=== PATIENT | female | born 1940 | race Caucasian/White ===

== ENCOUNTER → 2019-10-14 10:05 | Outpatient (CLI) | payer MEDICARE, OTHER, SELFPAY ==
--- NOTE | ~2019-10-14 | MR_ITS ---
EXAMINATION: MR brain/brain stem wo con EXAM DATE: 10/14/2019 11:00 INDICATION: Cognitive issues. Occasional dizziness. TECHNIQUE: Magnetic resonance imaging (MRI) of the brain/brain stem obtained without contrast. Sagitt al T1, axial diffusion, gradient echo (T2*), T1, T2, FLAIR sequences obtained. There is no prior st udy for comparison. FINDINGS: There are no areas of restricted diffusion to suggest acute infarction. There is no acute hemorrhage seen on the T2*, a hemosiderin sensitive sequence. No intraparenchymal brain mass lesion. There is mild periventricular and subcortical T2/FLAIR signal hyperintensity, nonspecific but probab ly related to small vessel ischemic disease (microangiopathy). There is mild prominence of the sulc i and ventricles related to cerebral atrophy. There are no extra-axial collections. Flow voids are seen in the cerebral arteries on the T2-weighted sequences consistent with their expected patency. The orbits are unremarkable. Soft tissue is unremarkable. IMPRESSION: 1. No acute intracranial findings. 2. Chronic age related findings. Reviewed, dictated and finalized at location A.
--- NOTE | ~2019-10-14 | DEXA_ITS ---
Bone Density Report Name: Alice Preston Age: 79 Sex: Female Ethnicity: White Date of : 1940 Indication: postmenopausal; screening for osteoporosis; height loss; hysterectomy; Referring Provider: Erik Feng Study: Bone densitometry was performed. Exam Date: October 14, 2019 Accession number: [id number] Bone Density: Region BMD T-score Z-score Classification AP Spine (L1, L2, L3) 1.201 1.7 4.3 Normal Femoral Neck (Left) 0.851 0.0 2.4 Normal Total Hip (Left) 1.006 0.5 2.7 Normal Femoral Neck (Right) 0.880 0.3 2.6 Normal Total Hip (Right) 0.976 0.3 2.4 Normal Total Hip Mean 0.991 0.4 2.6 Normal World Health Organization criteria for BMD impression classify patients as: Normal (T-score at or above -1.0), Osteopenia (T-score between -1.0 and -2.5), or Osteoporosis (T-score at or below -2.5). 10-year Fracture Risk: FRAX not reported because: All T-scores for Spine Total, Hip Total, Femoral Neck at or above -1.0 Clinical Information Provided by Patient: Has the following medical conditions: Hysterectomy Patient maximum height was 65 Menopause Age: 40 No regular weight bearing exercise Drinks caffeinated beverages Onset of menses at age 10 Number of children 2 Impression: The patient has normal bone mass. Discussion: LOW RISK OF FRACTURE; BONE DENSITY IS WELL ABOVE THE MINIMUM DESIRABLE LEVEL AND ABOVE AVERAGE FOR AGE AND SEX AT ALL SKELETAL SITES TESTED. This person's bone density is above expected limits for age and sex. This is rarely clinically significant, but should be pursued if there are significant musculoskeletal complaints. The patient should follow a healthful lifestyle (good nutrition with adequate calcium and vitamin D, and appropriate weight-bearing exercise). Follow-Up: Consider repeating this study in 5 years or sooner if there is some new clinical indication. Reported by: MATTHEW on 10/14/2019 10:36:00 AM. Reviewed, dictated and finalized at location ANickie HOUGH
== END ==
PROVIDERS: PCP Family Medicine; Visit Provider Physician Assistant Medical
DX: F03.90 Unspecified dementia, unspecified severity, without behavioral disturbance, psychotic disturbance, mood disturbance, and anxiety (principal); Z78.0 Asymptomatic menopausal state
CPT/HCPCS: 70551; 77080

== ENCOUNTER 2019-11-26 15:35 | Observation (INO) | payer MEDICARE, OTHER, SELFPAY ==
[2019-11-26] VITALS (7 sets, daily range): BP systolic 137–165; BP diastolic 52–80; PULSE 71–80; RESP 14–18; TEMP 36.2–36.8; O2SAT 99–100; BMI 31.4
--- NOTE | ~2019-11-26 | CT_ITS ---
EXAMINATION: CT brain wo con DATE: 11/26/2019 16:00 INDICATION: Aphasia TECHNIQUE: Computed tomography (CT) of the head was performed without intravenous contrast. The mA wa s adjusted according to patient size. Iterative reconstruction technique was employed. Exam dose: 60 5.33 mGy-cm total exam DLP. COMPARISON: None FINDINGS: No intracranial mass lesion or hemorrhage or evidence of cerebrovascular accident. No midli ne shift or mass effects. No subdural or epidural hematoma. No orbital mass lesion is evident. No fracture or bone destruction of the cranial vault. The mastoid air cells and included paranasal sinuses are normally developed and aerated bilaterally. IMPRESSION: No acute intracranial finding Reviewed, dictated and finalized at Location A. Reviewed, dictated and finalized at location A.
--- NOTE | ~2019-11-26 | US_ITS ---
EXAMINATION: US carotid duplex BI DATE: 11/27/2019 10:36 INDICATION: Aphasia. TIA. TECHNIQUE: Grayscale, color Doppler, and pulsed Doppler images of the cervical carotid arteries were obtained. The degree of vessel stenosis is placed in one of the following categories: normal, <50%, 5 0-69%, >=70% but less than near-occlusion, near-occlusion, or total occlusion. Note that percent sten osis relative to normal distal artery lumen diameter is indirectly measured from velocity measurement s as described by Sanju, et al. Radiology 2003; 229:340-346. Notes: Normal: Peak systolic velocity <125 centimeters/sec and no plaque <50%. Peak systolic velocity <125 ( EDV <40; ICA/CCA PSV ratio <2.0; used these factors only a tandem lesions or low cardiac output or co ntralateral disease) 50-69 %: PSV 125-230 (EDV 40-100; ratio 2-4) >= 70% but less than near occlusion: PSV greater than 230 (EDV > 100; ratio> 4.0) Near Occlusion: PSV that is variable; markedly narrowed lumen Occlusion: Absent flow on color/spectral Doppler and no lumen on don scale. COMPARISON: None. FINDINGS: RIGHT: The right common carotid artery (CCA) peak systolic velocity (PSV) is 103 cm/s. The right internal ca rotid artery (ICA) PSV is 82 cm/s. The right ICA end-diastolic velocity (EDV) is 21 cm/s. The right I CA/CCA PSV ratio is 0.8. The external carotid artery (ECA) PSV is 105 cm/s. There is antegrade flow i n the right vertebral artery. LEFT: The left CCA PSV is 95 cm/s. The left ICA PSV is 100 cm/s. The left ICA EDV is 18 cm/s. The left ICA/ CCA PSV ratio is 1.1. The ECA PSV is 98 cm/s. There is antegrade flow in the left vertebral artery. IMPRESSION: 1. Less than 50% stenosis in the right internal carotid artery by sonographic criteria. 2. Less than 50% stenosis in the left internal carotid artery by sonographic criteria. Reviewed, dictated and finalized at location A. IMPRESSION: 1. Less than 50% stenosis in the right internal carotid artery by sonographic kelly ruth. 2. Less than 50% stenosis in the left internal carotid artery by sonographic karl yeung.
--- NOTE | ~2019-11-26 | XR_ITS ---
XR chest 1V portable DATE: 11/26/2019 16:07 INDICATION: Cerebrovascular accident. Aphasia. TECHNIQUE: Portable AP chest on 11/26/2019 at 1601 hours COMPARISON: None FINDINGS: Normal heart size. Aortic arch calcification. No hilar or mediastinal enlargement. No pulmo nary infiltrate or consolidation, pleural effusion or pulmonary vascular congestion or pneumothorax. Bilateral glenohumeral osteoarthritis. Diffuse idiopathic skeletal hyperostosis of the thoracic spine . IMPRESSION: No active cardiopulmonary disease Reviewed, dictated and finalized at location A.
--- NOTE | ~2019-11-26 | MR_ITS ---
EXAMINATION: MR brain/brain stem wo/w con DATE: 11/27/2019 09:00 INDICATION: Aphasia TECHNIQUE: Magnetic resonance imaging (MRI) of the brain and brainstem was performed without intraven ous contrast. Sequences included sagittal and axial T1-weighted SE, axial diffusion-weighted FS SE, a xial T2*-weighted GRE, axial T2-weighted FLAIR Propeller, and axial T2-weighted Propeller. Apparent d iffusion coefficient (ADC) maps were created. COMPARISON: MRI dated 10/14/2019. FINDINGS: Normal brain parenchymal volume for age. No acute intracranial hemorrhage, infarction, mass or mass effect. There are scattered mild periventricular and subcortical white matter changes, most likely related to small vessel ischemic disease (microangiopathy). No ventriculomegaly or midline kortney ft. Structures of the posterior fossa including 7/8th cranial nerve complexes are unremarkable. Paran heather sinuses are unremarkable. Orbits are symmetric without disconjugate gaze. Major intracerebral fl ow voids are normal. Midline sagittal images are normal. No abnormal contrast enhancement. IMPRESSION: 1. No acute intracranial abnormality. 2: Chronic age-related findings. Reviewed, dictated and finalized at location A.
--- NOTE | 2019-11-26 15:45 | ECG_ITS ---
Measurements Intervals [place] Rate: 75 P: 49 VA: 148 QRS: -22 QRSD: 139 T: 121 QT: 412 QTc: 460 Interpretive Statements SINUS RHYTHM LEFT BUNDLE BRANCH BLOCK BASELINE ARTIFACT- II, III, AVF, V5 ABNORMAL ECG Electronically Signed On 11-26-2019 15:58:01 CDT by oSnu Wooten D.O.
[2019-11-26 16:11] LABS: Basophils Percent Auto 0.2 % (0.2-1.2); Eosinophils Absolute Auto 0.2 K/mm3 (0-0.3); Eosinophils Percent Auto 2.1 % (0-4.4); Hematocrit 44.2 % (37.0-47.0); Hemoglobin 14.7 g/dL (12.0-15.0); Immature Granulocyte Absolute 0.04 K/mm3 (0.00-0.031); Immature Granulocyte Percent A 0.3 % (0-0.5); Lymphocytes Absolute Auto 3.48 K/mm3 (0.9-3.2); Lymphocytes Percent Auto 29.7 % (18.3-44.2); Mean Corpuscular HGB Conc 33.3 g/dl (32-36); Mean Corpuscular Hemoglobin 31.7 pg (26-34); Mean Corpuscular Volume 95.5 fl (80-100); Mean Platelet Volume 10.3 fl (7.4-10.4); Monocytes Absolute Auto 1.1 K/mm3 (0.1-0.6); Monocytes Percent Auto 9.2 % (2.6-8.5); Neutrophils Absolute Auto 6.8 K/mm3 (1.3-6.7); Neutrophils Percent Auto 58.5 % (45.5-73.1); Platelet Count Result 285 k/mm3 (150-375); Red Blood Count 4.63 M/mm3 (4.2-5.4); Red Cell Distribution Width 12.9 % (11.5-14.5); White Blood Count 11.7 K/mm3 (4.5-10.0)
--- NOTE | 2019-11-26 16:16 | ED.NEUROSD ---
HPI - Neuro Symptoms/Deficit General Chief Complaint: Neuro Symptoms/Deficit Stated Complaint: aphasia Time Seen by Provider: 11/26/19 15:43 Source: RN notes reviewed History of Present Illness HPI Narrative: Patient presents emergency department from home for a seizure. Patient states approximate 145 today she had a 15-minute episode of a seizure. States she was talking with a neighbor during that time. She denies any other associated symptoms denies any facial droop numbness or tingling in the extremities difficulty moving the extremities chest pain shortness of breath or any other symptoms. She denies any previous history of CVA. States all symptoms have resolved at this time Related Data Home Medications Medication Instructions Recorded Confirmed aspirin 81 mg tablet,delayed 81 mg PO DAILY 09/29/19 release atorvastatin 10 mg tablet 10 mg PO DAILY 09/29/19 bimatoprost 0.01 % eye drops 1 drop EACH EYE QPM 09/29/19 gabapentin 400 mg capsule 400 mg PO BID 09/29/19 hydrochlorothiazide 12.5 mg tablet 12.5 mg PO DAILY 09/29/19 insulin degludec 200 unit/mL (3 20 unit SUB-Q DAILY 09/29/19 mL) subcutaneous pen lisinopril 20 mg tablet 20 mg PO DAILY 09/29/19 metformin 500 mg tablet,extended 1,000 mg PO DAILY tablet 09/29/19 release 24 hr metoprolol tartrate 50 mg tablet 50 mg PO Q12H 09/29/19 multivit with min-folic 1 tablet PO DAILY 09/29/19 acid-lutein 400 mcg-250 mcg chewable tablet Allergies Allergy/AdvReac Type Severity Reaction Status Date / Time No Known Allergies Allergy Verified 09/29/19 11:14 Review of Systems Review of Systems: Narrative: Gen.: Denies fevers or chills Eyes: Denies eye pain or visual change ENT: Denies congestion Respiratory: Denies shortness of breath or cough CV: Denies chest pain or palpitations GI: Denies abdominal pain nausea, emesis or diarrhea Musculoskeletal: Denies back pain or muscle pain Neuro: See HPI Skin: Denies rash Except as documented, all other systems reviewed and negative PMF Past Medical History Medical History Ovarian cancer Wears glasses Surgical History Surgical History (Updated 09/29/19 @ 10:38 by Emily العراقي CMA) History of appendectomy History of arthroscopic knee surgery History of hysterectomy History of tonsillectomy Previous back surgery Social History Social History Smoking status: Never smoker Alcohol intake: never Exam Narrative: Exam Narrative: APPEARANCE: No acute distress, nontoxic, resting in bed HEENT: Normocephalic, atraumatic, OMM, TMs clear bilaterally EYES: PERRL, EOMI NECK: Supple, nontender, full range of motion without pain, no meningismus RESPIRATORY: No respiratory distress, clear to auscultation bilaterally with no rhonchi wheezing or rales CARDIOVASCULAR: RRR s murmur ABDOMINAL: Soft, nontender, nondistended MUSCULOSKELETAL: Moves all extremities. No clubbing, cyanosis or edema. NEURO: A and O ?3, following commands, speech normal, cranial nerves II through XII grossly intact,muscle strength 5 out of 5 bilateral upper and lower extremities SKIN:: Warm, dry. Normal Color PSYCHIATRIC: Normal affect/mood Course Course Emergency Course: Discussed with BRITTANI Torres for Dr Butts presentation work-up. Agrees with admission at this time Discussed with patient and family results of workup and diagnosis. Discussed need for admission. Patient and family understand and agree to current treatment plan Vital Signs Vital signs: Vital Signs Temperature 98.2 F 11/26/19 15:48 Pulse Rate 80 11/26/19 15:48 Respiratory Rate 18 11/26/19 15:48 Blood Pressure 156/80 H 11/26/19 15:48 Pulse Oximetry 100 11/26/19 15:48 Temperature 98.2 F 11/26/19 15:48 Pulse Rate 72 11/26/19 16:30 Respiratory Rate 14 11/26/19 16:30 Blood Pressure 137/52 L 11/26/19 16:30 Pulse Oximetry 99
[2019-11-26 16:20] LABS: Prothrombin Time 12.7 Seconds (11.1-14.7)
[2019-11-26 16:21] LABS: Partial Thromboplastin Time 28.3 SECONDS (22.3-36.8)
[2019-11-26 16:22] LABS: Blood Urea Nitrogen 21 mg/dL (7-17); Calcium 9.3 mg/dL (8.4-10.2); Carbon Dioxide 27 mmol/L (22-30); Chloride 106 mmol/L (98-107); Estimated Glomerular Filt Rate 60; Glucose 203 mg/dL (65-105); Sodium 139 mmol/L (137-145)
[2019-11-26 16:34] LABS: Troponin I < 0.012 ng/mL (0.000-0.034)
[2019-11-26] MEDS: ASPIRIN 81 MG CHEWABLE TABLET 324 MG PO (17:47)
--- NOTE | 2019-11-26 18:18 | ADMGEN ---
This patient, Alice Cordobaetler, was admitted to Medical Room 346-. Patient/family oriented to hospital policies and general routines including ID bracelet, bed and alarms, visiting hours, pain management, procedures, bathroom and other care routines, personal items, smoking policy, room service/diet, and visiting hours. Valuables list has been completed. Information on how to activate the Rapid Response Team has been discussed. Patient/Family are encouraged to report perceived risks to care and to ask questions if they do not understand what they are told or what they should do.
[2019-11-26 19:10] LABS: Glucose Point of Care 137 (65-105)
[2019-11-26 19:24] LABS: Troponin I < 0.012 ng/mL (0.000-0.034)
[2019-11-26] MEDS: METOPROLOL TARTRATE 50 MG TAB PO (21:10)
--- NOTE | 2019-11-26 21:30 | PM.IMHP ---
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 She was in usual state of health when she woke this morning. Not long prior to arrival, she was outside speaking with her neighbor when suddenly ?I could not come up with or get out the words that I was trying to say.? This lasted for approximately 15 minutes before resolving without recurrence. She also mentions that earlier this morning she had a ?bright white star? appear in her right visual field, causing some blurriness, before resolving. It is my understanding that this is happened previously, and when she discussed it with her eye doctor she was told that this was essentially an ocular headache and nothing to worry about. In any event, she had no other neurologic symptoms than the dysarthria. She specifically denies headache, vertigo, focal weakness, paresthesias, diplopia, and dysphagia. She has no history of cardiac dysrhythmia and denies palpitations, fluttering, and racing heart. There was no seizure activity. She did not check her glucose prior to coming to the hospital, but her lunchtime reading was around 130. Of note, she mentions having a brain MRI due to occasional dizziness and ?cognitive issues.? With further clarification, the patient tells me that during a routine appointment with her physician that her cognitive score was a bit lower than what is normal for her age. She herself had not noticed any change in memory or cognition. Review of Systems Review of Systems: Narrative: Twelve systems were reviewed with pertinent positives and negatives as per HPI. No fever, chills, or sweats. No recent cold or flu-like symptoms. She denies headache. No falls. No chest pain or shortness of breath. No cough. No nausea, vomiting, or diarrhea. No dysuria. Occasional stress urinary incontinence with coughing or laughing. She believes her diabetes is fairly well controlled with a recent hemoglobin A1c of 7%. No blurry vision, polydipsia, or polyuria. No nephropathy, retinopathy, or significant neuropathy. Except as documented, all other systems were reviewed and are negative. [facility] Past Medical History Medical History (Updated 11/26/19 @ 20:13 by Melissa Guillen PA-C) Diabetic peripheral neuropathy DVT (deep venous thrombosis) Essential hypertension Glaucoma Insulin dependent type 2 diabetes mellitus Hemoglobin A1c was 7.0% in August 2019. Kidney stone Mixed hyperlipidemia Ovarian cancer (~1983) Status post bilateral salpingo-oophorectomy and radiation/chemotherapy. Pancreatitis Surgical History Surgical History (Updated 11/26/19 @ 23:34 by Melissa Guillen PA-C) History of appendectomy History of arthroscopy of left knee History of bilateral salpingo-oophorectomy (~1983) For ovarian cancer. History of lumbar laminectomy History of tonsillectomy Family History Family History Mother Diabetes mellitus Sibling Diabetes mellitus Father Family history of kidney disease Grandparent Family history of pancreatic cancer Family history of malignant neoplasm of uterus Other Family history of arthritis Family history of blood dyscrasia Family history of congestive heart failure Family history of hearing loss Family history of mental disorder Family history of thyroid disease Social History Social History (Updated 11/26/19 @ 23:35 by Melissa Guillen PA-C) Social History: The patient lives in her own home in [place]. She is originally from [place], [place]. Her was in the [employer], and the previously lived in [facility], [place], and [place]. Her in June 2019 of stage IV lung cancer. They hav
[2019-11-26 22:31] LABS: Troponin I < 0.012 ng/mL (0.000-0.034)
[2019-11-26 22:46] LABS: Glucose Point of Care 86 (65-105)
[2019-11-27] VITALS: PULSE 64
[2019-11-27 04:00] VITALS: PULSE 64
[2019-11-27 05:48] VITALS: BP 148/61; PULSE 71; RESP 16; TEMP 36.6; O2SAT 100
[2019-11-27 06:48] LABS: Alanine Aminotransferase 22 U/L (4-35); Albumin Level 3.7 g/dL (3.5-5.1); Alkaline Phosphatase 73 U/L (38-126); Aspartate Amino Transferase 26 U/L (14-36); Bilirubin,Total 0.5 mg/dL (0.2-1.3); Blood Urea Nitrogen 16 mg/dL (7-17); Calcium 8.8 mg/dL (8.4-10.2); Carbon Dioxide 26 mmol/L (22-30); Chloride 108 mmol/L (98-107); Cholesterol 120 mg/dL (0-200); Estimated CRCL calculation 57 ml/min; Estimated Glomerular Filt Rate > 60; Glucose 135 mg/dL (65-105); HDL Direct 49 mg/dL; Sodium 139 mmol/L (137-145); Triglycerides 71 mg/dL (<150)
[2019-11-27 06:59] LABS: LDL Cholesterol Direct 52 mg/dL
[2019-11-27 07:49] LABS: Glucose Point of Care 151 (65-105)
[2019-11-27 08:00] VITALS: PULSE 72
[2019-11-27] MEDS: MULTIVITAMINS /C LUTEIN (CENTRUM SILVER) TABLET *BKC 1 TAB PO (09:40)
[2019-11-27 09:41] VITALS: PULSE 78
[2019-11-27] MEDS: METOPROLOL TARTRATE 50 MG TAB PO (09:41)
[2019-11-27] MEDS: ATORVASTATIN 10 MG TABLET PO (09:42)
[2019-11-27] MEDS: hydroCHLOROthiazide 12.5 MG CAPSULE PO (09:42)
[2019-11-27] MEDS: lisinopriL 20 MG TABLET PO (09:42)
[2019-11-27 11:53] LABS: Glucose Point of Care 271 (65-105)
[2019-11-27 12:00] VITALS: PULSE 76
[2019-11-27] MEDS: ASPIRIN 81 MG ENTERIC TABLET PO (12:00)
[2019-11-27] MEDS: GABAPENTIN 400 MG CAPSULE PO (12:01)
[2019-11-27] MEDS: INSULIN ASPART (*BKC) 100 UNITS/ML 8 UNITS SUB-Q (12:01)
--- NOTE | 2019-11-27 12:43 | PC.NURSE ---
Pt's 0900 Gabapentin and asprin delayed due to pharmacy.
--- NOTE | 2019-11-27 13:42 | PM.DS ---
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 She was in usual state of health when she woke this morning. Not long prior to arrival, she was outside speaking with her neighbor when suddenly ?I could not come up with or get out the words that I was trying to say.? This lasted for approximately 15 minutes before resolving without recurrence. She also mentions that earlier this morning she had a ?bright white star? appear in her right visual field, causing some blurriness, before resolving. It is my understanding that this is happened previously, and when she discussed it with her eye doctor she was told that this was essentially an ocular headache and nothing to worry about. In any event, she had no other neurologic symptoms than the dysarthria. She specifically denies headache, vertigo, focal weakness, paresthesias, diplopia, and dysphagia. She has no history of cardiac dysrhythmia and denies palpitations, fluttering, and racing heart. There was no seizure activity. She did not check her glucose prior to coming to the hospital, but her lunchtime reading was around 130. Of note, she mentions having a brain MRI due to occasional dizziness and ?cognitive issues.? With further clarification, the patient tells me that during a routine appointment with her physician that her cognitive score was a bit lower than what is normal for her age. She herself had not noticed any change in memory or cognition. Hospital Course: Discuss with patient she does not wish to stay in the hospital until for cardiac ECHO as all other test are normal including MRI of the brain, patient will follow up with her primary care provider as soon as possible, patient is instructed if any symptoms redevelop to call 911. patient is clinically stable will discharge patient home today. Status at Discharge Functional status at discharge: independent ambulation Overall status at discharge: patient is back to baseline Time Spent with Patient Time attestation: Total time spent providing and/or coordinating discharge services: Time spent: Less than 30 minutes Exam Const: General: comfortable and no acute distress HENMT: General nose exam: Normal nares present Eyes: General: appearance normal, both eyes and all related structures Sclera: sclerae normal Neck: Neck: supple Resp: Effort & Inspection: normal respiratory effort Auscultation: clear to auscultation bilaterally Cardio: Rate: regular rate Rhythm: regular rhythm GI: GI Palp: Yes Soft to palpation Auscultation: normal bowel sounds Skin: General skin exam: normal color Neuro: Sensory Exam: normal sensation Extrem: General: normal to inspection Psych: Affect: Anxious affect present DS: Data Data Completed and Pending Labs on day of discharge: Labs from last 24 hours 11/27/19 11/27/19 11/27/19 11:51 07:46 06:08 WBC RBC Hgb Hct MCV MCH MCHC RDW Plt Count MPV Immature Gran % (Auto) Neut % (Auto) Lymph % (Auto) [place] % (Auto) Eos % (Auto) Baso % (Auto) Lymph # (Auto) [place] # (Auto) Eos # (Auto) Baso # (Auto) Abs Immat Gran (auto) Absolute Neuts (auto) Absolute Nucleated RBC Nucleated RBC % PT INR APTT Sodium 139 Potassium 4.0 Chloride 108 H Carbon Dioxide 26 BUN 16 Creatinine 0.70 Estim Creat Clear Calc 57 Estimated GFR > 60 Glucose 135 H POC Capillary Glucose 271 H 151 H Calcium 8.8 Total Bilirubin 0.5 Direct Bilirubin 0.0 AST 26 ALT 22 Alkaline Phosphatase 73 Troponin I Total Protein 7.0 Albumin 3.7 Triglycerides 71 Cholesterol 120 LDL Cholesterol Direct 52 HDL Direct 49 05
--- NOTE | 2020-01-05 10:12 | WPDNEURCNPN ---
Consult date: 01/05/20 Time Seen: 10:13 HPI: Alice Preston is a 79 year old female ,This examiner never examine the patient and during the course of this hospitalization [facility] Past Medical History Medical History (Updated 12/29/19 @ 15:52 by Bertha Oneil MD) Benign paroxysmal vertigo, left ear Diabetic peripheral neuropathy DVT (deep venous thrombosis) Essential hypertension Glaucoma Insulin dependent type 2 diabetes mellitus Hemoglobin A1c was 7.0% in August 2019. Kidney stone Mixed hyperlipidemia Ovarian cancer (~1983) Status post bilateral salpingo-oophorectomy and radiation/chemotherapy. Pancreatitis Surgical History Surgical History (Updated 11/26/19 @ 23:34 by Melissa Guillen PA-C) History of appendectomy History of arthroscopy of left knee History of bilateral salpingo-oophorectomy (~1983) For ovarian cancer. History of lumbar laminectomy History of tonsillectomy Family History Family History Mother Diabetes mellitus Sibling Diabetes mellitus Father Family history of kidney disease Grandparent Family history of pancreatic cancer Family history of malignant neoplasm of uterus Other Family history of arthritis Family history of blood dyscrasia Family history of congestive heart failure Family history of hearing loss Family history of mental disorder Family history of thyroid disease Social History Social History (Updated 11/26/19 @ 23:35 by Melissa Guillen PA-C) Social History: The patient lives in her own home in [place]. She is originally from [place], [place]. Her was in the [employer], and the previously lived in [facility], [facility], and [place]. Her in June 2019 of stage IV lung cancer. They have 2 daughters, who live in the area. She designates her daughters, Cara Orodñez and Nicki Peña, as her surrogate decision makers and she wishes to be a full code. She is a lifelong nonsmoker and denies alcohol and drug abuse. Smoking status: Never smoker Spiritual care concerns: No Agree to blood products: Yes Meds Home Medications and Allergies Home Medications Medication Instructions Recorded Confirmed Type pen needle, diabetic 32 gauge x #300 each 07/13/19 11/26/19 Rx / aspirin 81 mg tablet,delayed 81 mg PO DAILY 09/29/19 11/26/19 History release atorvastatin 10 mg tablet 10 mg PO DAILY 09/29/19 11/26/19 History bimatoprost 0.01 % eye drops 1 drop EACH EYE QPM 09/29/19 11/26/19 History gabapentin 400 mg capsule 400 mg PO BID 09/29/19 11/26/19 History hydrochlorothiazide 12.5 mg tablet 12.5 mg PO DAILY 09/29/19 11/26/19 History lisinopril 20 mg tablet 20 mg PO DAILY 09/29/19 11/26/19 History metformin 500 mg tablet,extended 500 mg PO BID tablet 09/29/19 11/26/19 History release 24 hr metoprolol tartrate 50 mg tablet 50 mg PO Q12H 09/29/19 11/26/19 History multivit with min-folic 1 tablet PO DAILY 09/29/19 11/26/19 History acid-lutein 400 mcg-250 mcg chewable tablet blood sugar diagnostic #320 each 11/23/19 11/26/19 Rx Humalog KwikPen Insulin 8 unit SUB-Q TIDWM 11/26/19 11/26/19 History insulin degludec 200 unit/mL (3 20 unit SUB-Q DAILY 90 Days #9 ml 12/16/19 Rx mL) subcutaneous pen Allergies Allergy/AdvReac Type Severity Reaction Status Date / Time naproxen [From Aleve] AdvReac Hives Verified 11/26/19 18:28 Results Labs CBC & Chem 7: 11/26/19 16:05 11/27/19 06:08 Quality VTE Prophylaxis VTE prophylaxis: mechanical ordered
== END 2019-11-27 14:26 | disposition home or self-care (01) ==
LOC: ANHED 17:25 → ANH3MED 18:54
PROVIDERS: Physician Assistant; Admitting Provider Internal Medicine; Emergency Provider Emergency Medicine; PCP Family Medicine; Visit Provider Family Medicine
DX: R47.1 Dysarthria and anarthria (principal); I10 Essential (primary) hypertension; E11.42 Type 2 diabetes mellitus with diabetic polyneuropathy; E78.2 Mixed hyperlipidemia; H40.9 Unspecified glaucoma; Z79.4 Long term (current) use of insulin; Z79.82 Long term (current) use of aspirin; Z79.899 Other long term (current) drug therapy; Z85.43 Personal history of malignant neoplasm of ovary; Z86.718 Personal history of other venous thrombosis and embolism
CPT/HCPCS: 36415; 70450; 70553; 71045; 80048; 80061; 80076; 84484; 85025; 85610; 85730; 93005; 93880; 99285; A9270; A9577; G0378; J1815

== ENCOUNTER 2020-10-06 14:45 | Outpatient (CLI) | payer MEDICARE, OTHER, SELFPAY ==
--- NOTE | ~2020-10-06 | XR_ITS ---
EXAMINATION: XR knee LT min 4V DATE: 10/06/2020 15:22 INDICATION: Left knee pain. TECHNIQUE: 4 views of left knee were obtained. COMPARISON: None. FINDINGS: There is valgus angulation at the knee. No fracture. There is severe osteoarthritis of late ral compartment and moderate osteoarthritis of medial and patellofemoral compartments. There is a sma ll knee joint effusion. IMPRESSION: 1. Severe left knee osteoarthritis. 2. Small left knee joint effusion. Reviewed, dictated and finalized at location A. [employer] ADMINISTRATOR
--- NOTE | ~2020-10-06 | XR_ITS ---
EXAMINATION: XR knee RT min 4V DATE: 10/06/2020 15:22 INDICATION: Right knee pain. TECHNIQUE: 4 views of right knee were obtained. COMPARISON: None. FINDINGS: There is valgus angulation at the knee. No fracture. There is severe osteoarthritis of medi al compartment, moderate osteoarthritis of patellofemoral compartment, and mild osteoarthritis of lat eral compartment. No knee joint effusion. IMPRESSION: 1. Severe right knee osteoarthritis. Reviewed, dictated and finalized at location A. MANAGER
== END 2020-10-06 14:46 | disposition home or self-care (01) ==
PROVIDERS: PCP Family Medicine; Visit Provider Physician Assistant Medical
DX: M17.0 Bilateral primary osteoarthritis of knee (principal); M25.462 Effusion, left knee
CPT/HCPCS: 73564

== ENCOUNTER 2022-02-27 12:51 | Outpatient (CLI) | payer MEDICARE, OTHER, SELFPAY | END 2022-02-27 12:52 | disposition home or self-care (01) | PROVIDERS: PCP Family Medicine; Visit Provider Family Medicine | DX: E11.65 Type 2 diabetes mellitus with hyperglycemia (principal); Z51.81 Encounter for therapeutic drug level monitoring; Z79.4 Long term (current) use of insulin | CPT/HCPCS: 36415 ==

== ENCOUNTER → 2022-04-30 14:53 | Outpatient (CLI) | payer MEDICARE, OTHER, SELFPAY ==
--- NOTE | ~2022-04-30 | XR_ITS ---
XR shoulder RT min 2V 04/30/2022 15:20 Indication: Right shoulder pain. Procedure: 4 views right shoulder Comparison: No prior studies for comparison. Findings: There is moderate polyarticular osteoarthritis of the right shoulder. No fracture, subluxat ion or dislocation. No soft tissue abnormality. No foreign body. 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 Reviewed, dictated and finalized at location A. 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
== END ==
PROVIDERS: PCP Physician Assistant; Visit Provider Physician Assistant
DX: M25.411 Effusion, right shoulder (principal); M19.011 Primary osteoarthritis, right shoulder
CPT/HCPCS: 73030

== ENCOUNTER 2023-05-23 08:33 | Outpatient (CLI) | payer MEDICARE, OTHER, SELFPAY ==
[2023-05-23 11:52] LABS: Basophils Percent Auto 0.3 % (0.2-1.2); Eosinophils Absolute Auto 0.2 K/mm3 (0-0.3); Eosinophils Percent Auto 1.9 % (0-4.4); Hematocrit 48.7 % (37.0-47.0); Hemoglobin 16.1 g/dL (12.0-15.0); Immature Granulocyte Absolute 0.03 K/mm3 (0.00-0.031); Immature Granulocyte Percent A 0.3 % (0-0.5); Lymphocytes Absolute Auto 2.89 K/mm3 (0.9-3.2); Lymphocytes Percent Auto 31.5 % (18.3-44.2); Mean Corpuscular HGB Conc 33.1 g/dl (32-36); Mean Corpuscular Hemoglobin 32.1 pg (26-34); Mean Platelet Volume 10.4 fl (7.4-10.4); Monocytes Percent Auto 10.6 % (2.6-8.5); Neutrophils Absolute Auto 5.1 K/mm3 (1.3-6.7); Neutrophils Percent Auto 55.4 % (45.5-73.1); Platelet Count Result 279 k/mm3 (150-375); Red Blood Count 5.02 M/mm3 (4.2-5.4); Red Cell Distribution Width 12.8 % (11.5-14.5); White Blood Count 9.2 K/mm3 (4.5-10.0)
[2023-05-23 11:58] LABS: Alanine Aminotransferase 32 U/L (6-35); Albumin Level 4.2 g/dL (3.5-5.1); Alkaline Phosphatase 70 U/L (38-126); Anion Gap 7 mmol/L (8-16); Aspartate Amino Transferase 47 U/L (14-36); Bilirubin,Total 0.7 mg/dL (0.2-1.3); Blood Urea Nitrogen 26 mg/dL (7-17); Calcium 9.6 mg/dL (8.4-10.2); Carbon Dioxide 27 mmol/L (22-30); Chloride 106 mmol/L (98-107); Cholesterol 165 mg/dL (0-200); Estimated Glomerular Filt Rate 53; Glucose 127 mg/dL (65-110); HDL Direct 50 mg/dL; Potassium 4.5 mmol/L (3.4-5.0); Sodium 140 mmol/L (137-145); Triglycerides 94 mg/dL (<150)
[2023-05-23 12:09] LABS: LDL Cholesterol Direct 89 mg/dL
[2023-05-23 12:14] LABS: MALB Creatinine Ratio 23.1 mg/g (0-30); Microalbumin Urine Random 21.7 mg/L (0-16.7)
[2023-05-23 12:57] LABS: Hemoglobin A1C 7.6 % (<5.7)
== END 2023-05-23 08:34 | disposition home or self-care (01) ==
PROVIDERS: PCP Family Medicine; Visit Provider Family Medicine
DX: E11.22 Type 2 diabetes mellitus with diabetic chronic kidney disease (principal); I12.9 Hypertensive chronic kidney disease with stage 1 through stage 4 chronic kidney disease, or unspecified chronic kidney disease; N18.30 Chronic kidney disease, stage 3 unspecified; L65.9 Nonscarring hair loss, unspecified
CPT/HCPCS: 36415; 80053; 80061; 82043; 82607; 82728; 83036; 84443; 85025

== ENCOUNTER 2023-09-26 08:35 | Outpatient (CLI) | payer MEDICARE, OTHER, SELFPAY ==
[2023-09-26 18:57] LABS: Basophils Percent Auto 0.4 % (0.2-1.2); Eosinophils Absolute Auto 0.2 K/mm3 (0-0.3); Eosinophils Percent Auto 2.6 % (0-4.4); Hematocrit 50.5 % (37.0-47.0); Hemoglobin 15.8 g/dL (12.0-15.0); Immature Granulocyte Absolute 0.04 K/mm3 (0.00-0.031); Immature Granulocyte Percent A 0.4 % (0-0.5); Lymphocytes Absolute Auto 3.27 K/mm3 (0.9-3.2); Lymphocytes Percent Auto 35.4 % (18.3-44.2); Mean Corpuscular HGB Conc 31.3 g/dl (32-36); Mean Corpuscular Hemoglobin 30.5 pg (26-34); Mean Corpuscular Volume 97.5 fl (80-100); Mean Platelet Volume 9.8 fl (7.4-10.4); Monocytes Percent Auto 10.6 % (2.6-8.5); Neutrophils Absolute Auto 4.7 K/mm3 (1.3-6.7); Neutrophils Percent Auto 50.6 % (45.5-73.1); Platelet Count Result 262 k/mm3 (150-375); Red Blood Count 5.18 M/mm3 (4.2-5.4); Red Cell Distribution Width 13.2 % (11.5-14.5); White Blood Count 9.2 K/mm3 (4.5-10.0)
[2023-09-26 19:25] LABS: Alanine Aminotransferase 30 U/L (6-35); Alkaline Phosphatase 75 U/L (38-126); Anion Gap 3 mmol/L (8-16); Aspartate Amino Transferase 48 U/L (14-36); Bilirubin,Total 0.6 mg/dL (0.2-1.3); Blood Urea Nitrogen 21 mg/dL (7-17); Calcium 9.2 mg/dL (8.4-10.2); Carbon Dioxide 31 mmol/L (22-30); Chloride 106 mmol/L (98-107); Cholesterol 178 mg/dL (0-200); Creatinine Urine 86.6 mg/dL; Estimated Glomerular Filt Rate 60; Glucose 126 mg/dL (65-110); HDL Direct 49 mg/dL; Potassium 4.3 mmol/L (3.4-5.0); Sodium 140 mmol/L (137-145); Triglycerides 124 mg/dL (<150)
[2023-09-26 19:31] LABS: MALB Creatinine Ratio 30.5 mg/g (0-30); Microalbumin Urine Random 26.4 mg/L (0-16.7)
[2023-09-26 19:36] LABS: LDL Cholesterol Direct 109 mg/dL
[2023-09-26 20:17] LABS: Hemoglobin A1C 7.6 % (<5.7)
== END 2023-09-26 08:36 | disposition home or self-care (01) ==
LOC: ANHGOSHLAB 08:37
PROVIDERS: PCP Family Medicine; Visit Provider Family Medicine
DX: E11.22 Type 2 diabetes mellitus with diabetic chronic kidney disease (principal); I12.9 Hypertensive chronic kidney disease with stage 1 through stage 4 chronic kidney disease, or unspecified chronic kidney disease; N18.30 Chronic kidney disease, stage 3 unspecified; L65.9 Nonscarring hair loss, unspecified
CPT/HCPCS: 36415; 80053; 80061; 82043; 82607; 82728; 83036; 84443; 85025

== ENCOUNTER 2024-02-20 08:43 | Outpatient (CLI) | payer MEDICARE, OTHER, SELFPAY ==
[2024-02-20 19:05] LABS: Alanine Aminotransferase 28 U/L (6-35); Albumin Level 4.2 g/dL (3.5-5.1); Alkaline Phosphatase 72 U/L (38-126); Anion Gap 10 mmol/L (4-12); Aspartate Amino Transferase 44 U/L (14-36); Bilirubin,Total 0.7 mg/dL (0.2-1.3); Blood Urea Nitrogen 19 mg/dL (7-17); Calcium 9.5 mg/dL (8.4-10.2); Carbon Dioxide 25 mmol/L (22-30); Chloride 102 mmol/L (98-107); Cholesterol 202 mg/dL (0-200); Estimated Glomerular Filt Rate 53; Glucose 154 mg/dL (65-110); HDL Direct 49 mg/dL; Potassium 4.3 mmol/L (3.4-5.0); Sodium 137 mmol/L (137-145); Triglycerides 117 mg/dL (<150)
[2024-02-20 19:16] LABS: LDL Cholesterol Direct 125 mg/dL
[2024-02-20 19:41] LABS: Hemoglobin A1C 7.6 % (<5.7)
[2024-02-20 19:49] LABS: Creatinine Urine 80.2 mg/dL
[2024-02-20 19:52] LABS: MALB Creatinine Ratio 16.5 mg/g (0-30); Microalbumin Urine Random 13.2 mg/L (0-16.7)
== END 2024-02-20 08:44 | disposition home or self-care (01) ==
PROVIDERS: PCP Family Medicine; Visit Provider Family Medicine
DX: E11.22 Type 2 diabetes mellitus with diabetic chronic kidney disease (principal); I12.9 Hypertensive chronic kidney disease with stage 1 through stage 4 chronic kidney disease, or unspecified chronic kidney disease; N18.30 Chronic kidney disease, stage 3 unspecified; Z79.899 Other long term (current) drug therapy
CPT/HCPCS: 36415; 80053; 80061; 82043; 82607; 83036

== ENCOUNTER 2024-04-08 05:44 | Emergency (ER) | payer MEDICARE, OTHER, SELFPAY ==
--- NOTE | ~2024-04-08 | CT_ITS ---
CT of the Abdomen and Pelvis: Indication: Abdominal pain Technique: 2.5 mm axial scans were obtained through the abdomen and pelvis following intravenous adm inistration of 100 cc of Omnipaque 350. Dose reduction technique was used on this scan by utilizing a utomated exposure control and iterative reconstruction technique. The dose-length product (DLP) was 6 46.40 mGy-cm. Findings: Scans through the lung bases are unremarkable. The liver, spleen, pancreas, gallbladder, adrenals and kidneys are within normal limits. There are mi ld atherosclerotic calcifications of the aorta and iliac vessels. No lymphadenopathy. No bowel obstruction or bowel wall thickening. There is no evidence to suggest acute appendicitis. Images through the pelvis were performed. Probable mild diffuse urinary bladder wall thickening. Poss ible mild hyperenhancement of the right ureteral urothelium. No pelvic mass evident. No ascites. Impression: Possible cystitis. Possible mild hyperenhancement of the right ureter/right renal pelvis could reflec t ascending urinary tract infection. No sunitha pyelonephritis evident on this exam. Reviewed, dictated and finalized at location . Impression: Possible cystitis. Possible mild hyperenhancement of the right ureter/right ha al pelvis could reflect ascending urinary tract infection. No sunitha pyelonephri tis evident on this exam.
[2024-04-08 05:48] VITALS: BP 153/77; PULSE 79; RESP 18; TEMP 36.8; O2SAT 99
[2024-04-08 06:19] LABS: Basophils Percent Auto 0.3 % (0.2-1.2); Eosinophils Absolute Auto 0.1 K/mm3 (0-0.3); Eosinophils Percent Auto 0.8 % (0-4.4); Hematocrit 49.3 % (37.0-47.0); Hemoglobin 16.7 g/dL (12.0-15.0); Immature Granulocyte Absolute 0.07 K/mm3 (0.00-0.031); Immature Granulocyte Percent A 0.5 % (0-0.5); Lymphocytes Percent Auto 17.5 % (18.3-44.2); Mean Corpuscular HGB Conc 33.9 g/dl (32-36); Mean Corpuscular Hemoglobin 31.6 pg (26-34); Mean Corpuscular Volume 93.4 fl (80-100); Mean Platelet Volume 9.8 fl (7.4-10.4); Monocytes Absolute Auto 1.5 K/mm3 (0.1-0.6); Monocytes Percent Auto 9.9 % (2.6-8.5); Neutrophils Absolute Auto 10.5 K/mm3 (1.3-6.7); Platelet Count Result 277 k/mm3 (150-375); Red Blood Count 5.28 M/mm3 (4.2-5.4); White Blood Count 14.8 K/mm3 (4.5-10.0)
[2024-04-08 06:28] LABS: Alanine Aminotransferase 25 U/L (6-35); Albumin Level 4.3 g/dL (3.5-5.1); Alkaline Phosphatase 83 U/L (38-126); Anion Gap 13 mmol/L (4-12); Aspartate Amino Transferase 31 U/L (14-36); Blood Urea Nitrogen 14 mg/dL (7-17); Calcium 9.4 mg/dL (8.4-10.2); Carbon Dioxide 22 mmol/L (22-30); Chloride 103 mmol/L (98-107); Estimated CRCL calculation 47 ml/min; Estimated Glomerular Filt Rate > 60; Glucose 194 mg/dL (65-110); Potassium 4.1 mmol/L (3.4-5.0); Sodium 138 mmol/L (137-145)
[2024-04-08 06:42] LABS: Glucose Point of Care 183 mg/dl (65-105)
[2024-04-08 07:13] LABS: Add Urine Microscopic? YES; Appearance Urine Turbid (Clear); Bacteria Urine 4+ /hpf; Bilirubin Urine Negative (Negative); Blood Urine 3+ (Negative); Color Urine Yellow (Yellow); Glucose Urine UA 3+ mg/dL (Negative); Ketones Urine 1+ mg/dL (Negative); Leukocyte Esterase Ur 2+ LEU/UL (Negative); Need Manual Microscopic Reviewed; Nitrate Urine Positive (Negative); Non Pathogenic Casts 0-2; Protein Urine 2+ mg/dL (Negative); RBC Urine >100 /hpf (0-2); Specific Grav Ur 1.028 (1.001-1.035); Squamous Epithelial Cell Urine Occasional /hpf (Few); WBC Urine >100 /hpf (0-3); pH Urine 5.5 (5.0-9.0)
--- NOTE | 2024-04-08 08:10 | ED.GENADULT ---
HPI - General Adult General Chief complaint: Back Pain/Injury Stated complaint: flank pain Time Seen by Provider: 04/08/24 07:04 History of Present Illness HPI narrative: Patient is an 83-year-old female who presents ER with right-sided flank pain. Sudden onset early this morning. Has history of kidney stones. Was never had a UTI or kidney infection. Reports mild discoloration or your own that began this morning as well. No fevers or chills or sweats. No vomiting. No aggravating or alleviating factors for her pain. Related Data Home Medications Medication Instructions Recorded Confirmed bimatoprost 0.01 % eye drops 1 drop ophthalmic (eye) QPM 09/29/19 02/19/24 (Lumigan) multivit with min-folic 1 tablet PO DAILY 09/29/19 02/19/24 acid-lutein 400 mcg-250 mcg chewable tablet (Centrum Silver) aspirin 325 mg tablet 325 mg PO DAILY 04/05/20 02/19/24 Allergies Allergy/AdvReac Type Severity Reaction Status Date / Time naproxen [From Aleve] AdvReac Hives Verified 04/08/24 07:19 Review of Systems Review of Systems: All systems reviewed & are unremarkable except as noted in HPI and below Constitutional: Constitutional: Reports no additional constitutional complaints ENT: Reports system reviewed and no additional complaints, except as documented Cardiovascular: Cardiovascular: Reports no additional cardiovascular complaints Respiratory: Respiratory: Reports no additional respiratory complaints Gastrointestinal: Gastrointestinal: Reports no additional gastrointestinal complaints Genitourinary: Genitourinary: Denies hematuria, Denies nocturia, Reports dysuria and Reports flank pain PMF Past Medical History Medical History Achilles tendonosis of left lower extremity Actinic keratosis Benign paroxysmal vertigo, left ear DVT (deep venous thrombosis) Glaucoma Kidney stone Ovarian cancer (~1983) Status post bilateral salpingo-oophorectomy and radiation/chemotherapy. Pancreatitis Parotitis Radiculopathy, cervical region TIA (transient ischemic attack) TMJ (temporomandibular joint disorder) Surgical History Surgical History History of appendectomy History of arthroscopy of left knee History of bilateral salpingo-oophorectomy (~1983) For ovarian cancer. History of lumbar laminectomy (~1975) History of tonsillectomy (~1944) Family History Family History Mother Diabetes mellitus Sibling Diabetes mellitus Father Family history of kidney disease Grandparent Family history of pancreatic cancer Family history of malignant neoplasm of uterus Other Family history of arthritis Family history of blood dyscrasia Family history of congestive heart failure Family history of hearing loss Family history of mental disorder Family history of thyroid disease Social History Social History Social History: The patient lives in her own home in [place]. She is originally from [place], [place]. Her was in the [employer], and the previously lived in [place], [facility], and [facility]. Her in June 2019 of stage IV lung cancer. They have 2 daughters, who live in the area. She designates her daughters, Cara Ordoñez and Nicki Peña, as her surrogate decision makers and she wishes to be a full code. She is a lifelong nonsmoker and denies alcohol and drug abuse. 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
[2024-04-08 08:30] VITALS: BP 139/68; PULSE 79; RESP 20; O2SAT 98
== END 2024-04-08 08:30 | disposition home or self-care (01) ==
PROVIDERS: Emergency Medicine; Emergency Provider Emergency Medicine; PCP Family Medicine
DX: N39.0 Urinary tract infection, site not specified (principal); H40.9 Unspecified glaucoma; Z87.442 Personal history of urinary calculi; Z86.718 Personal history of other venous thrombosis and embolism; Z85.43 Personal history of malignant neoplasm of ovary; Z86.73 Personal history of transient ischemic attack (TIA), and cerebral infarction without residual deficits; Z90.722 Acquired absence of ovaries, bilateral; Z90.79 Acquired absence of other genital organ(s); Z79.82 Long term (current) use of aspirin; Z79.84 Long term (current) use of oral hypoglycemic drugs; Z79.4 Long term (current) use of insulin; Z79.899 Other long term (current) drug therapy
CPT/HCPCS: 36415; 74177; 80053; 81001; 82948; 85025; 87077; 87086; 87088; 87186; 99284; Q9967

== ENCOUNTER 2024-05-19 02:07 | Day surgery (SDC) | payer MEDICARE, OTHER, SELFPAY ==
[2024-05-05 09:31] VITALS: BMI 32.8
[2024-05-19 09:33] VITALS: BP 159/61; PULSE 65; RESP 18; TEMP 36.1; O2SAT 98
[2024-05-19] MEDS: LACTATED RINGERS 1,000 ML 150 ML IV CONT (09:50)
--- NOTE | 2024-05-19 09:52 | SUR.PREOP ---
PT BLOOD SUGAR 148 PER PT'S PERSONAL GLUCOSE MONITOR IN LEFT ARM.
--- NOTE | 2024-05-19 09:59 | WPDANESEPPF ---
Anes - Initial Pre Proc Eval Procedure: Operation Date: 05/19/24 10:30 Proposed Procedures p Colonoscopy - Isaac Shen MD Date/Time: 05/19/24 09:59 Surgeon: Isaac Shen MD Pre Op Diagnosis: fecal abnormalities Patient Data Age: 83 Gender: F Height: 1.57 m Weight: 78.8 kg Last Vital Signs Temp 97.0 F L 05/19/24 09:33 Pulse 65 05/19/24 09:33 Resp 18 05/19/24 09:33 BP 159/61 H 05/19/24 09:33 Pulse Ox 98 05/19/24 09:33 O2 Del Method Room Air 05/19/24 09:33 Allergies Allergy/AdvReac Type Severity Reaction Status Date / Time naproxen [From Aleve] AdvReac Hives Verified 05/19/24 09:30 Home Medications Medication Instructions Recorded Confirmed Type bimatoprost 0.01 % eye drops 1 drop ophthalmic (eye) QPM 09/29/19 05/19/24 History (Lumigan) multivit with min-folic 1 tablet PO DAILY 09/29/19 05/19/24 History acid-lutein 400 mcg-250 mcg chewable tablet (Centrum Silver) blood sugar diagnostic (FreeStyle #320 ea 11/23/19 05/05/24 Rx Test strips) flash glucose scanning reader #1 ea 02/01/21 05/05/24 Rx (FreeStyle Britany 2 [place]) flash glucose sensor (FreeStyle #6 ea 02/01/21 05/05/24 Rx Britany 2 Sensor kit) pen needle, diabetic 32 gauge x #300 ea 01/22/23 05/05/24 Rx 1/6 (NovoFine Plus) empagliflozin 25 mg tablet See Rx Instructions .Route 07/15/23 05/19/24 Rx (Jardiance) .COMPLEX #90 tabs insulin degludec 200 unit/mL (3 26 unit (0.13 mL) subcut DAILY #9 11/27/23 05/19/24 Rx mL) subcutaneous pen (Tresiba mL FlexTouch U-200 insulin) metoprolol tartrate 50 mg tablet See Rx Instructions .Route 01/07/24 05/19/24 Rx .COMPLEX #180 tabs sitagliptin phosphate 50 1 tablet PO BID #180 tabs 07/11/24 10/23/24 Rx mg-metformin 500 mg tablet (Janumet) atorvastatin 20 mg tablet 20 mg PO QHS #90 tabs 02/24/24 05/19/24 Rx insulin lispro 200 unit/mL (3 mL) See Rx Instructions subcut 03/15/24 05/19/24 Rx subcutaneous pen (Humalog KwikPen .COMPLEX #42 mL U-200 Insulin) cefuroxime axetil 500 mg tablet 500 mg PO Q12H #20 tabs 04/08/24 05/19/24 Rx blood-glucose sensor (FreeStyle #6 ea 04/15/24 05/05/24 Rx Britany 3 Plus Sensor device) lisinopril 20 mg tablet 20 mg PO DAILY 04/15/24 05/19/24 History hydrochlorothiazide 12.5 mg tablet 12.5 mg PO DAILY #90 tabs 04/16/24 05/19/24 Rx Freestyle Britany 3 Plus #1 ea 04/19/24 05/05/24 Rx aspirin 81 mg tablet,delayed 81 mg PO DAILY 05/19/24 05/19/24 History release Patient hx anesthesia problems: none Family hx anesthesia problems: none Results Review: All pre-operative results and documents have been reviewed as part of the pre-operative evaluation. [facility] Past Medical History Medical History Achilles tendonosis of left lower extremity Actinic keratosis Benign paroxysmal vertigo, left ear DVT (deep venous thrombosis) Glaucoma Kidney stone Ovarian cancer (~1983) Status post bilateral salpingo-oophorectomy and radiation/chemotherapy. Pancreatitis Parotitis Radiculopathy, cervical region TIA (transient ischemic attack) TMJ (temporomandibular joint disorder) Surgical History Surgical History History of appendectomy History of arthroscopy of left knee History of bilateral salpingo-oophorectomy (~1983) For ovarian cancer. History of lumbar laminectomy (~1975) History of tonsillectomy (~1944) Family History Family History Mother Diabetes mellitus Sibling Diabetes mellitus Father Family history of kidney disease Grandparent Family history of pancreatic cancer Family history of malignant neoplasm of uterus Other Family history of arthritis Family history of blood dyscrasia Family history of congestive heart failure Family history of hearing loss Family history of mental disorder
--- NOTE | 2024-05-19 10:31 | PM.HPGS ---
History of Present Illness History of Present Illness Consent: Risks, benefits, and alternatives have been discussed and questions answered. Patient agrees to proceed with procedure. Chief complaint: fecal abnormalities Narrative: Alice Preston is a 83 year old female with + cologuard, last colonoscopy more than 10 years ago Review of Systems Review of Systems: All systems reviewed & are unremarkable except as noted in HPI and below PMFSH Past Medical History Medical History (Updated 05/19/24 @ 10:34 by Isaac Shen MD) Achilles tendonosis of left lower extremity Actinic keratosis Benign paroxysmal vertigo, left ear DVT (deep venous thrombosis) Glaucoma Kidney stone Ovarian cancer (~1983) Status post bilateral salpingo-oophorectomy and radiation/chemotherapy. Pancreatitis Parotitis Positive colorectal cancer screening using Cologuard test Radiculopathy, cervical region TIA (transient ischemic attack) TMJ (temporomandibular joint disorder) Surgical History Surgical History History of appendectomy History of arthroscopy of left knee History of bilateral salpingo-oophorectomy (~1983) For ovarian cancer. History of lumbar laminectomy (~1975) History of tonsillectomy (~1943) Family History Family History Mother Diabetes mellitus Sibling Diabetes mellitus Father Family history of kidney disease Grandparent Family history of pancreatic cancer Family history of malignant neoplasm of uterus Other Family history of arthritis Family history of blood dyscrasia Family history of congestive heart failure Family history of hearing loss Family history of mental disorder Family history of thyroid disease Social History Social History Social History: The patient lives in her own home in [place]. She is originally from [place], [place]. Her was in the [employer], and the previously lived in [facility], [facility] and [place]. Her in June 2019 of stage IV lung cancer. They have 2 daughters, who live in the area. She designates her daughters, Cara Ordoñez and Nicki Peña, as her surrogate decision makers and she wishes to be a full code. She is a lifelong nonsmoker and denies alcohol and drug abuse. Smoking status: Never smoker Alcohol intake: never Substance use: never Substance use type: does not use Do You Feel Safe in your Home?: Yes Lack of Transportation: No Lack of Food: Never True Current Housing: I Have Housing Concerned About Future Housing: No Difficulty Paying Gas/Electric Bills: No Difficulty Paying for Meds: No Currently Unemployed: No Education: High School Diploma/GED Difficulty w/ Childcare or Family Care: No Living arrangements: alone Spiritual care concerns: No Agree to blood products: Yes Meds Home Medications and Allergies Home Medications Medication Instructions Recorded Confirmed Type bimatoprost 0.01 % eye drops 1 drop ophthalmic (eye) QPM 09/29/19 05/19/24 History (Lumigan) multivit with min-folic 1 tablet PO DAILY 09/29/19 05/19/24 History acid-lutein 400 mcg-250 mcg chewable tablet (Centrum Silver) blood sugar diagnostic (FreeStyle #320 ea 11/23/19 05/05/24 Rx Test strips) flash glucose scanning reader #1 ea 02/01/21 05/05/24 Rx (FreeStyle Britany 2 [place]) flash glucose sensor (FreeStyle #6 ea 02/01/21 05/05/24 Rx Britany 2 Sensor kit) pen needle, diabetic 32 gauge x #300 ea 01/22/23 05/05/24 Rx 08/02 (NovoFine Plus) empagliflozin 25 mg tablet See Rx Instructions .Route 07/15/23 05/19/24 Rx (Jardiance) .COMPLEX #90 tabs insulin degludec 200 unit/mL (3 26 unit (0.13 mL) subcut DAILY #9 11/27/23 05/19/24 Rx mL) subcutaneous pen (Tresiba mL FlexTouch U-200 insulin) metopro
[2024-05-19 11:02] VITALS: BP 119/43; PULSE 73; RESP 18; O2SAT 98
[2024-05-19 11:12] VITALS: BP 113/48; PULSE 64; RESP 17; O2SAT 95
[2024-05-19 11:21] LABS: Glucose Point of Care 129 mg/dl (65-105)
[2024-05-19 11:22] VITALS: BP 139/96; PULSE 71; RESP 17; O2SAT 95
[2024-05-19 11:30] VITALS: PULSE 70
== END 2024-05-19 11:45 | disposition home or self-care (01) ==
PROVIDERS: PCP Family Medicine; Referring Provider Family Medicine; Visit Provider Internal Medicine Gastroenterology
PROC: 0DJD8ZZ Inspection of Lower Intestinal Tract, Via Natural or Artificial Opening Endoscopic (ICD-10-PCS; CPT 45378; principal; 2024-05-19 10:30)
DX: D12.0 Benign neoplasm of cecum (principal); D12.2 Benign neoplasm of ascending colon; D12.5 Benign neoplasm of sigmoid colon; K64.8 Other hemorrhoids; K85.90 Acute pancreatitis without necrosis or infection, unspecified; K11.20 Sialoadenitis, unspecified; L57.0 Actinic keratosis; M26.609 Unspecified temporomandibular joint disorder, unspecified side; E66.9 Obesity, unspecified; Z68.31 Body mass index [BMI] 31.0-31.9, adult; Z79.84 Long term (current) use of oral hypoglycemic drugs; Z79.4 Long term (current) use of insulin; Z79.82 Long term (current) use of aspirin; Z98.890 Other specified postprocedural states; Z98.1 Arthrodesis status; Z86.718 Personal history of other venous thrombosis and embolism; Z87.442 Personal history of urinary calculi; Z85.43 Personal history of malignant neoplasm of ovary; Z92.3 Personal history of irradiation; Z92.21 Personal history of antineoplastic chemotherapy; Z86.73 Personal history of transient ischemic attack (TIA), and cerebral infarction without residual deficits; Z80.0 Family history of malignant neoplasm of digestive organs; Z80.49 Family history of malignant neoplasm of other genital organs; Z82.49 Family history of ischemic heart disease and other diseases of the circulatory system
CPT/HCPCS: 45385; 82948; 88305; J2003; J2704; J7120

== ENCOUNTER 2024-08-18 08:42 | Outpatient (CLI) | payer MEDICARE, OTHER, SELFPAY ==
[2024-08-20 08:54] LABS: Alanine Aminotransferase 47 U/L (6-35); Albumin Level 4.2 g/dL (3.5-5.1); Alkaline Phosphatase 81 U/L (38-126); Anion Gap 12 mmol/L (4-12); Aspartate Amino Transferase 43 U/L (14-36); Bilirubin,Total 0.8 mg/dL (0.2-1.3); Blood Urea Nitrogen 26 mg/dL (7-17); Calcium 9.7 mg/dL (8.4-10.2); Carbon Dioxide 27 mmol/L (22-30); Chloride 101 mmol/L (98-107); Cholesterol 129 mg/dL (0-200); Estimated Glomerular Filt Rate 47; Glucose 84 mg/dL (65-110); HDL Direct 51 mg/dL; Potassium 5.4 mmol/L (3.4-5.0); Sodium 140 mmol/L (137-145); Triglycerides 99 mg/dL (<150)
[2024-08-20 09:06] LABS: LDL Cholesterol Direct 65 mg/dL
== END 2024-08-18 08:43 | disposition home or self-care (01) ==
LOC: ANHGOSHLAB 08:43
PROVIDERS: PCP Family Medicine; Visit Provider Family Medicine
DX: E11.22 Type 2 diabetes mellitus with diabetic chronic kidney disease (principal); I12.9 Hypertensive chronic kidney disease with stage 1 through stage 4 chronic kidney disease, or unspecified chronic kidney disease; N18.30 Chronic kidney disease, stage 3 unspecified; L65.9 Nonscarring hair loss, unspecified
CPT/HCPCS: 36415; 80053; 80061; 82607; 84443

== ENCOUNTER 2024-08-23 08:27 | Outpatient (CLI) | payer MEDICARE, OTHER, SELFPAY ==
[2024-08-23 17:03] LABS: MALB Creatinine Ratio 64.3 mg/g (0-30); Microalbumin Urine Random 46.3 mg/L (0-16.7)
[2024-08-23 17:24] LABS: Hemoglobin A1C 7.5 % (<5.7)
[2024-08-23 18:45] LABS: Hepatitis C Virus Antibody Negative (Negative)
== END 2024-08-23 08:28 | disposition home or self-care (01) ==
LOC: ANHGOSHLAB 08:28
PROVIDERS: PCP Family Medicine; Visit Provider Family Medicine
DX: E11.22 Type 2 diabetes mellitus with diabetic chronic kidney disease (principal); I12.9 Hypertensive chronic kidney disease with stage 1 through stage 4 chronic kidney disease, or unspecified chronic kidney disease; N18.30 Chronic kidney disease, stage 3 unspecified; Z11.59 Encounter for screening for other viral diseases
CPT/HCPCS: 36415; 82043; 83036; 86803

== ENCOUNTER 2025-04-22 12:42 | Outpatient (CLI) | payer MEDICARE, OTHER, SELFPAY ==
[2025-04-22 18:08] LABS: Hematocrit 51.9 % (37.0-47.0); Hemoglobin 16.8 g/dL (12.0-15.0); Immature Granulocyte Percent A 0.5 % (0-0.5); Lymphocytes Absolute Auto 4.22 K/mm3 (0.9-3.2); Mean Corpuscular HGB Conc 32.4 g/dl (32-36); Mean Corpuscular Hemoglobin 31.2 pg (26-34); Mean Corpuscular Volume 96.5 fl (80-100); Nucleated Red Blood Cells Absolute Auto 0.000 K/mm3 (0.0-0.012); Nucleated Red Blood Cells Perc 0.0 % (0.0-0.2); Platelet Count Result 280 k/mm3 (150-375); Red Blood Count 5.38 M/mm3 (4.2-5.4); White Blood Count 12.7 K/mm3 (4.5-10.0)
[2025-04-22 18:17] LABS: Hemoglobin A1C 7.5 % (<5.7)
[2025-04-22 18:33] LABS: Alanine Aminotransferase 39 U/L (6-35); Albumin Level 4.1 g/dL (3.5-5.1); Alkaline Phosphatase 88 U/L (38-126); Anion Gap 8 mmol/L (4-12); Aspartate Amino Transferase 47 U/L (14-36); Bilirubin,Total 0.7 mg/dL (0.2-1.3); Blood Urea Nitrogen 22 mg/dL (7-17); Calcium 9.2 mg/dL (8.4-10.2); Carbon Dioxide 25 mmol/L (22-30); Chloride 105 mmol/L (98-107); Cholesterol 123 mg/dL (0-200); Estimated Glomerular Filt Rate 46; Glucose 108 mg/dL (65-110); HDL Direct 46 mg/dL; Potassium 4.4 mmol/L (3.4-5.0); Sodium 138 mmol/L (137-145); Total Protein 7.2 g/dL (6.3-8.2); Triglycerides 112 mg/dL (<150)
[2025-04-22 19:01] LABS: Ferritin 111.00 ng/mL (11.1-264)
[2025-04-22 19:09] LABS: Thyroid Stimulating Hormone 1.140 uIU/mL (0.465-4.680)
== END 2025-04-22 12:43 | disposition home or self-care (01) ==
LOC: ANHGOSHLAB 12:43
PROVIDERS: PCP Family Medicine; Visit Provider Student in an Organized Health Care Education/Training Program
DX: L29.9 Pruritus, unspecified (principal); I12.9 Hypertensive chronic kidney disease with stage 1 through stage 4 chronic kidney disease, or unspecified chronic kidney disease; E11.22 Type 2 diabetes mellitus with diabetic chronic kidney disease; N18.30 Chronic kidney disease, stage 3 unspecified
CPT/HCPCS: 36415; 80053; 80061; 82728; 83036; 84443; 85025